=== PATIENT | male | born 2000 | race Hispanic/Latino ===

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

== ENCOUNTER 2023-02-19 07:59 | Emergency (ER) | payer OTHER, SELFPAY ==
[2023-02-19] MEDS ORDERED: Bacitracin 1 PK ONE (08:41)
== END 2023-02-19 08:45 | disposition home or self-care (01) ==
LOC: ERS 07:59
DX: S60.512A Abrasion of left hand, initial encounter (principal); M25.551 Pain in right hip; V29.99XA Rider (driver) (passenger) of other motorcycle injured in unspecified traffic accident, initial encounter
CPT/HCPCS: 99283

== ENCOUNTER 2023-12-29 08:19 | Emergency (ER) | payer OTHER ==
[2023-12-29] MEDS ORDERED: Ketorolac Tromethamine 30 MG (1 mL) VIAL ONE (08:50)
== END 2023-12-29 10:27 | disposition home or self-care (01) ==
LOC: ERS 08:19
DX: S92.341A Displaced fracture of fourth metatarsal bone, right foot, initial encounter for closed fracture (principal); S92.351A Displaced fracture of fifth metatarsal bone, right foot, initial encounter for closed fracture; S62.015A Nondisplaced fracture of distal pole of navicular [scaphoid] bone of left wrist, initial encounter for closed fracture; S51.011A Laceration without foreign body of right elbow, initial encounter; F17.290 Nicotine dependence, other tobacco product, uncomplicated; V89.2XXA Person injured in unspecified motor-vehicle accident, traffic, initial encounter
CPT/HCPCS: 12001; 29125; 96372; J1885

== ENCOUNTER 2024-07-19 09:02 | Emergency (ER) | payer OTHER, SELFPAY ==
[2024-07-19] MEDS ORDERED: Metoclopramide HCl 10 MG TAB ONE (09:42)
[2024-07-19] MEDS ORDERED: Ketorolac Tromethamine 30 MG (1 mL) VIAL ONE ×2 (09:42→12:08)
[2024-07-19] MEDS ORDERED: Acetaminophen 500 MG TAB ONE (10:17)
== END 2024-07-19 12:25 | disposition home or self-care (01) ==
LOC: ERS 09:02
DX: G43.909 Migraine, unspecified, not intractable, without status migrainosus (principal); F17.210 Nicotine dependence, cigarettes, uncomplicated; F17.290 Nicotine dependence, other tobacco product, uncomplicated
CPT/HCPCS: 96372; 99283; J1885

== ENCOUNTER 2024-07-30 04:28 | Emergency (ER) | payer SELFPAY | END 2024-07-30 04:59 | disposition left against medical advice (07) | LOC: ERS 04:28 | DX: Z53.21 Procedure and treatment not carried out due to patient leaving prior to being seen by health care provider (principal) ==

== ENCOUNTER 2025-05-14 23:20 | Observation (INO) | payer BC ==
[2025-05-15 01:23] LABS: #Basophils 0.06 10x3/uL (0.0-0.2); #Eosinophils 0.13 10x3/uL (0.0-0.7); #Monocytes 1.82 10x3/uL (0.11-0.59); #Neutrophils 18.28 10x3/uL (1.40-6.50); %Basophils 0.3 % (0.0-1.0); %Eosinophils 0.6 % (0.0-10.0); %Lymphocytes 12.0 % (21.0-51.0); %Monocytes 7.9 % (0.0-10.0); %Neutrophils 78.9 % (42.0-75.0); Hematocrit 46.0 % (42.0-52.0); Hemoglobin 16.2 g/dL (14.0-18.0); Mean Corpuscular Hemoglobin 29.6 pg (27.0-31.0); Mean Corpuscular Volume 84.1 fL (78.0-98.0); Platelet Count 345 10x3/uL (130-400); Red Blood Cell (RBC) Count 5.47 mill/uL (4.70-6.10); White Blood Cell (WBC) Count 23.15 10x3/uL (4.8-10.8)
[2025-05-15 01:32] LABS: ALT (SGPT) 19 U/L (Less than 45); AST (SGOT) 23 U/L (11-34); Albumin 4.6 g/dL (3.1-4.5); Alkaline Phosphatase 86 U/L (40-110); Anion Gap 16 mmol/L (10-20); BUN (Urea Nitrogen) 12 mg/dL (8.9-20.6); Bilirubin, Total 1.0 mg/dL (0.3-1.2); Calc. Creatinine Clearance 0 mL/min (70-130); Calcium 9.4 mg/dL (7.8-10.44); Carbon Dioxide 23 mmol/L (22-29); Chloride 100 mmol/L (98-107); Globulin 3.3 g/dL (2.4-3.5); Glucose 97 mg/dL (70-105); Lipase 11 U/L (8-78); Potassium 3.6 mmol/L (3.5-5.1); Sodium 135 mmol/L (136-145)
[2025-05-15] MEDS ORDERED: Ketorolac Tromethamine 30 MG (1 mL) VIAL ONE (01:37)
[2025-05-15] MEDS ORDERED: Ondansetron PF 4 MG/2 ML Vial IVP PRN (03:22)
[2025-05-15] MEDS ORDERED: oxyCODONE 5 MG TAB PO PRN (03:22)
[2025-05-15] MEDS ORDERED: Acetaminophen 325 MG TAB PO PRN (03:22)
[2025-05-15] MEDS ORDERED: Albuterol 2.5 MG (3 mL) NEB NEB PRN (04:45)
[2025-05-15] MEDS ORDERED: Senokot 8.6 MG TAB PO PRN (04:56)
[2025-05-15 04:57] LABS: #Basophils 0.07 10x3/uL (0.0-0.2); #Eosinophils 0.16 10x3/uL (0.0-0.7); #Monocytes 1.93 10x3/uL (0.11-0.59); #Neutrophils 15.15 10x3/uL (1.40-6.50); %Basophils 0.3 % (0.0-1.0); %Eosinophils 0.8 % (0.0-10.0); %Lymphocytes 15.7 % (21.0-51.0); %Monocytes 9.3 % (0.0-10.0); %Neutrophils 73.3 % (42.0-75.0); Hematocrit 47.5 % (42.0-52.0); Hemoglobin 15.7 g/dL (14.0-18.0); Mean Corpuscular Hemoglobin 29.2 pg (27.0-31.0); Mean Corpuscular Volume 88.3 fL (78.0-98.0); Platelet Count 303 10x3/uL (130-400); Red Blood Cell (RBC) Count 5.38 mill/uL (4.70-6.10); White Blood Cell (WBC) Count 20.68 10x3/uL (4.8-10.8)
[2025-05-15 05:07] LABS: INR-International Normal Ratio 1.1; PTT 37.3 sec (22.9-36.1); Prothrombin Time 14.4 sec (12.0-14.7)
[2025-05-15 05:09] LABS: ALT (SGPT) 16 U/L (Less than 45); AST (SGOT) 33 U/L (11-34); Albumin 4.0 g/dL (3.1-4.5); Alkaline Phosphatase 80 U/L (40-110); Anion Gap 16 mmol/L (10-20); BUN (Urea Nitrogen) 11 mg/dL (8.9-20.6); Bilirubin, Total 1.5 mg/dL (0.3-1.2); Calc. Creatinine Clearance 0 mL/min (70-130); Calcium 9.1 mg/dL (7.8-10.44); Carbon Dioxide 20 mmol/L (22-29); Chloride 102 mmol/L (98-107); Globulin 2.9 g/dL (2.4-3.5); Glucose 90 mg/dL (70-105); Magnesium 2.0 mg/dL (1.6-2.6); Potassium 3.5 mmol/L (3.5-5.1); Sodium 134 mmol/L (136-145)
[2025-05-15 05:24] VITALS: BMI 30.1
[2025-05-15] MEDS: Ketorolac Tromethamine 30 MG (1 mL) VIAL IVP SCH (06:04)
[2025-05-15 08:17] VITALS: BP 126/69; TEMP 98.4
[2025-05-15] MEDS: Famotidine/PF 20 mg/2ml Vial SLOW IVP SCH (09:14)
[2025-05-15] MEDS ORDERED: Iopamidol 370 76% 100 ML VIAL ONE (11:40)
[2025-05-15] MEDS ORDERED: Bupivacaine 0.25% HCL 30 ML VIAL ONE (14:03)
[2025-05-15] MEDS ORDERED: Rocuronium Bromide 10 MG/ML (10ML VIAL) ONE (14:05)
[2025-05-15] MEDS ORDERED: Lidocaine 1% PF 5 ML VIAL ONE (14:05)
[2025-05-15] MEDS ORDERED: Ondansetron PF 4 MG/2 ML Vial ONE (14:05)
[2025-05-15] MEDS ORDERED: fentaNYL PF 100 MCG/2 ML SYRINGE ONE ×2 (14:07→15:10)
[2025-05-15] MEDS ORDERED: SUGAMMADEX SODIUM 200 MG/2 ML VIAL ONE (14:35)
[2025-05-15] MEDS ORDERED: PROPOFOL 200 MG/20 ML VIAL ONE (14:48)
[2025-05-15] MEDS ORDERED: Glycopyrrolate 0.2 MG/ML 5 ML SYRINGE ONE (15:24)
[2025-05-15] MEDS ORDERED: NEOSTIGMINE 3 MG/3 ML SYRINGE ONE (15:24)
== END 2025-05-15 18:24 | disposition home or self-care (01) ==
LOC: ERS 23:20 → T4-A 05-15 03:31
PROVIDERS: ADMIT Family Medicine; ATTEND Family Medicine
PROC: 0DTJ4ZZ Resection of Appendix, Percutaneous Endoscopic Approach (ICD-10-PCS; principal; 2025-05-15)
DX: K35.80 Unspecified acute appendicitis (principal); J45.909 Unspecified asthma, uncomplicated; F17.290 Nicotine dependence, other tobacco product, uncomplicated; Z79.899 Other long term (current) drug therapy
CPT/HCPCS: 36415; 74177; 80053; 83690; 83735; 84100; 85025; 85610; 85730; 88304; 96365; 96375; 96376; A4649; G0378; J0169; J0665; J1100; J1308; J1885; J2250; J2272; J2405; J2543; J2704; J7030; Q9967